=== PATIENT | male | born 1960 | race Caucasian/White ===

== ENCOUNTER 2019-06-01 18:37 | Emergency (ER) | payer MEDICARE, OTHER ==
[2019-06-01 18:43] VITALS: TEMP 98
--- NOTE | 2019-06-01 19:19 | ED ---
Alcohol HPI - General Source: EMS Mode of arrival: EMS <Fay Leonardo - Last Filed: 06/01/19 19:18> <Gregory Macario - Last Filed: 06/02/19 00:33> - General Chief Complaint: Alcohol Stated Complaint: ETOH Time Seen by Provider: 06/01/19 18:42 - History of Present Illness Initial Comments: Patient is a 59-year-old male presenting to the emergency department with acute intoxication. Patient states he lives in [place] and had a friend drive him to [place] for rehab. However [facility] would not take him because he w as intoxicated and he needed to be sober first. So he was brought to the ER. Patient states he would like to get sober. Patient has no other complaints at this time. Upon arrival to the ER, vital signs are stable. BAT was 0.306. (Fay Leonardo) - Related Data Home Medications Medication Instructions Recorded Confirmed Allopurinol [Zyloprim] 300 mg PO DAILY 06/01/19 06/01/19 Dextran 70/Hypromellose [Genteal 1 drop BOTH EYES QID PRN 06/01/19 06/01/19 Tears 0.1%-0.3% Drop] Ergocalciferol [Vitamin D2] 50,000 unit PO Q7D 06/01/19 06/01/19 Folic Acid 1 mg PO DAILY 06/01/19 06/01/19 Gabapentin [Neurontin] 300 mg PO TID 06/01/19 06/01/19 Magnesium 200 mg PO BID 06/01/19 06/01/19 Meloxicam 7.5 mg PO DAILY 06/01/19 06/01/19 Metoprolol Tartrate 25 mg PO BID 06/01/19 06/01/19 Mometasone/Formoterol [Dulera 100 1 puff INHALATION BID 06/01/19 06/01/19 Mcg/5 Mcg Inhaler] OLANZapine [ZyPREXA] 5 mg PO HS 06/01/19 06/01/19 Pantoprazole Sodium 20 mg PO DAILY 06/01/19 06/01/19 Tamsulosin [Flomax] 0.4 mg PO DAILY 06/01/19 06/01/19 Umeclidinium [place] [Incruse 1 puff INHALATION RT-DAILY 06/01/19 06/01/19 Ellipta] amLODIPine [Norvasc] 10 mg PO DAILY 06/01/19 06/01/19 hydrOXYzine PAMOATE 25 mg PO QID PRN 06/01/19 06/01/19 Allergies Allergy/AdvReac Type Severity Reaction Status Date / Time No Known Allergies Allergy Unverified 06/01/19 21:25 Review of Systems ROS Other: All systems not noted in ROS Statement are negative. <Fay Leonardo - Last Filed: 06/01/19 19:18> ROS Other: All systems not noted in ROS Statement are negative. <Gregory Macario - Last Filed: 06/02/19 00:33> ROS Statement: Those systems with pertinent positive or pertinent negative responses have been documented in the HPI. Past Medical History Past Medical History: COPD, Diabetes Mellitus, Hypertension History of Any Multi-Drug Resistant Organisms: None Reported Additional Past Surgical History / Comment(s): finger sx Past Psychological History: No Psychological Hx Reported Smoking Status: Current every day smoker Past Alcohol Use History: Abuse Past Drug Use History: None Reported <Fay Leonardo - Last Filed: 06/01/19 19:18> General Exam <Fay Leonardo - Last Filed: 06/01/19 19:18> General appearance: alert, in no apparent distress, appears intoxicated Head exam: Present: atraumatic, normocephalic, normal inspection Eye exam: Present: normal appearance, PERRL, EOMI. Absent: scleral icterus, conjunctival injection, periorbital swelling ENT exam: Present: normal exam, mucous membranes moist Neck exam: Present: normal inspection. Absent: tenderness, meningismus, lymphadenopathy Respiratory exam: Present: normal lung sounds bilaterally. Absent: respiratory distress, wheezes, rales, rhonchi, stridor Cardiovascular Exam: Present: regular rate, normal rhythm, normal heart sounds. Absent: systolic murmur, diastolic murmur, rubs, gallop, clicks GI/Abdominal exam: Present: soft, normal bowel sounds. Absent: distended, tenderness, guarding, rebound, rigid Extremities exam: Present: normal inspection, full ROM, normal capillary refill. Absent: tenderness, pedal edema, joint swelling, calf tenderness Back exam: Present: normal inspection Neurological exam: Present: alert, oriented X3, CN II-XII intact Psychiatric exam: Present: normal affect, normal mood Skin exam: Present: warm, dry, intact, normal color. Absent: rash <Gregory Macario - Last Filed: 06/02/19 00:33> - General Exam Comments Initial Comments: GENERAL: Well-appearing, well-nourished, intoxicated. HEAD: Atraumatic, normocephalic. EYES: Pupils equal round and reactive to light, extraocular movements intact, sclera anicteric, conjunctiva are normal. ENT: Moist mucous membranes. NECK: Normal range of motion, supple without lymphadenopathy or JVD. LUNGS: Breath sounds clear to auscultation bilaterally and equal. No wheezes rales or rhonchi. HEART: Regular rate and rhythm without murmurs, rubs or gallops. ABDOMEN: Soft, nontender, normoactive bowel sounds. No guarding, no rebound. No masses appreciated. EXTREMITIES: Normal range of motion, no pitting or edema. No clubbing or cyanosis. NEUROLOGICAL: Cranial nerves II through XII grossly intact. PSYCH: Intoxicated SKIN: Warm, Dry, normal turgor, no rashes or lesions noted. (Fay Leonardo) Course <Gregory Macario - Last Filed: 06/02/19 00:33> Vital Signs 06/01/19 06/01/19 18:40 22:02 Temperature 98.0 F Pulse Rate 98 87 Respiratory 16 18 Rate Blood Pressure 156/90 131/64 O2 Sat by Pulse 99 91 L Oximetry - Reevaluation(s) Reevaluation #1: 06/02/19 00:06 A she continued to be intoxicated, patient is significant hours from home unable to discharge as he has no way home as well as has no way currently to [facility],no family members will come to see patient (Gregory Macario) Medical Decision Making <Gregory Macario - Last Filed: 06/02/19 00:33> - Medical Decision Making Nexium male is able to stay in emergency department without night has seemed to become clinically sober for discharge, patient is not from the area and has no place to go her stay, patient pending [facility] admission (Gregory Macario) Disposition <Fay Leonardo - Last Filed: 06/01/19 19:18> Is patient prescribed a controlled substance at d/c from ED?: No <Gregory Macario - Last Filed: 06/02/19 00:33> Clinical Impression: Alcoholic intoxication Disposition: HOME SELF-CARE Condition: Fair Instructions (If sedation given, give patient instructions): Alcohol Intoxication (ED) Referrals: Nonstaff,Physician [REFERRING] - 1-2 days
[2019-06-01 22:04] VITALS: BP 131/64; PULSE 87; RESP 18
[2019-06-02] MEDS ORDERED: LORazepam 1 MG TAB PO STA (00:53)
== END 2019-06-02 06:59 | disposition home or self-care (01) ==
LOC: EC 18:37
DX: F10.129 Alcohol abuse with intoxication, unspecified (principal); J44.9 Chronic obstructive pulmonary disease, unspecified; I10 Essential (primary) hypertension; F17.200 Nicotine dependence, unspecified, uncomplicated; Z79.1 Long term (current) use of non-steroidal anti-inflammatories (NSAID); Z79.51 Long term (current) use of inhaled steroids; Z79.899 Other long term (current) drug therapy
CPT/HCPCS: 82075; 99284